=== PATIENT | male | born 1955 | race Caucasian/White ===

== ENCOUNTER 2019-12-02 07:56 | Outpatient (CLI) | payer BC, SELFPAY ==
--- NOTE | ~2019-12-02 | CT_ITS ---
EXAMINATION: CT chest wo con EXAM DATE: 12/02/2019 08:22 INDICATION: Prostate cancer. Enlarged lymph nodes. TECHNIQUE: Spiral CT of the chest without contrast. Axial, coronal and sagittal images were reviewe d. Coronal maximum intensity pixel images of chest reviewed. The dose-length product (DLP) for this examination was 494.66 mGy-cm. The exposure was tailored according to patient size (auto mA exposur e control), and iterative reconstruction (ASIR) was used as additional dose reduction technique. Comp arison is made to prior examination from 08/22/2019. Correlation was made with PET/CT 06/07/2019. FINDINGS: The lungs are clear. There are no pleural or pericardial effusions. Tracheobronchial t ree is patent. There is right lower paratracheal lymph node measuring 2.2 x 1.6 cm, unchanged kayla red to prior chest CT from August and PET/CT from May. There is no pneumothorax. Heart nor mal in size. There is extensive coronary arterial calcification, arterial sclerosis. Upper abdomen is unremarkable. There is moderate thoracic spondylosis without osteoblastic or osteolytic lesions identified. Patient has diffuse idiopathic skeletal hyperostosis (DISH). There is mild gynecomast ia. IMPRESSION: 1. Mediastinal lymphadenopathy, stable in size compared to prior study. Stability suggests these are more likely reactive than malignancy. 2. Extensive coronary artery calcifications. Consider cardiology consult if not recently evaluated. Reviewed, dictated and finalized at location B. IMPRESSION: 1. Mediastinal lymphadenopathy, stable in size compared to prior study. Stabil ity suggests these are more likely reactive than malignancy. 2. Extensive coronary artery calcifications. Consider cardiology consult if no t recently evaluated.
== END 2019-12-02 07:57 | disposition home or self-care (01) ==
LOC: ANHIMG 08:02
DX: R59.0 Localized enlarged lymph nodes (principal); I25.10 Atherosclerotic heart disease of native coronary artery without angina pectoris
CPT/HCPCS: 71250

== ENCOUNTER 2020-10-22 09:26 | Outpatient (CLI) | payer BC, SELFPAY ==
--- NOTE | ~2020-10-22 | CT_ITS ---
EXAMINATION: CT diagnostic chest wo con DATE: 10/22/2020 09:52 INDICATION: Cough TECHNIQUE: Computed tomography (CT) of the chest was performed without intravenous contrast. Automate d exposure control and iterative reconstruction technique were employed. Exam dose: 315.63 mGy-cm to harjeet exam DLP. COMPARISON: 12/02/2019 CT chest FINDINGS: Interval enlargement of prevascular and right paratracheal lymphadenopathy since 12/02/2019. Diminished prominence of subcarinal lymphadenopathy since 12/02/2019. Increased right hilar lymphadenopathy since 12/02/2019. Mild pericardial effusion since 12/02/2019. Extensive coronary atherosclerotic calcification is again noted. Thoracic and aortic great vessel anjel cifications. New approximately 11.7 x 15.5 mm mass in the right upper lobe (series 4 image 36, suggesting right up per lobe lung carcinoma. Consider PET/CT scan for further evaluation. The left lung is clear of infiltrate or consolidation. Normal morphology of the adrenal glands. Mild bilateral gynecomastia. Diffuse idiopathic skeletal hyperostosis of the thoracic and upper lumbar spine. No suspicious osteolytic or osteoblastic lesions are noted. IMPRESSION: 0.7 x 15.5 mm right upper lobe lung mass suspicious for bronchogenic carcinoma, with interval increas e right hilar, paratracheal and prevascular lymphadenopathy since 12/02/2019 Mild pericardial effusion since 12/02/2019 Reviewed, dictated and finalized at [facility]. Reviewed, dictated and finalized at location A. L FURNITURE ASSEMBLER IMPRESSION: 0.7 x 15.5 mm right upper lobe lung mass suspicious for bronchogenic carcinoma, with interval increase right hilar, paratracheal and prevascular lymphadenopat hy since 12/02/2019 Mild pericardial effusion since 12/02/2019
== END 2020-10-22 09:27 | disposition home or self-care (01) ==
PROVIDERS: PCP Family Medicine; Visit Provider Family Medicine
DX: R05 Cough (principal); I31.3 Pericardial effusion (noninflammatory)
CPT/HCPCS: 71250

== ENCOUNTER 2020-10-25 08:54 | Outpatient (CLI) | payer BC, SELFPAY ==
--- NOTE | ~2020-10-25 | PE_ITS ---
EXAMINATION: PET skull to mid thigh DATE: 10/25/2020 10:49 INDICATION: Abnormal findings of lung field. TECHNIQUE: Blood glucose level was 88 mg/dL. 10.669 mCi of 18-fluorodeoxyglucose (18-FDG) was adminis tered i.v. Low dose computed tomography (CT) images were acquired from the base of the brain to the p roximal thighs for attenuation correction and anatomic localization. Automated exposure control was e mployed. Dose-length product (DLP) was 944 mGy-cm. Positron emission tomography (PET) images were acq uired in the same distribution. COMPARISON: Chest CT 10/22/2020 FINDINGS: Head/neck: There is right high and mid internal jugular chain lymphadenopathy and left supraclavicula r lymphadenopathy with increased activity. For example, a 11 x 17 mm high right internal jugular barrtet n lymph node demonstrates maximum SUV of 8.0. Right thyroid lobe is newly enlarged with increased act ivity. Chest: There is mild atelectasis bilaterally. There is a 17 x 13 mm nodule in right upper lobe with i ncreased activity. This nodule is contiguous with infiltrative and confluent right perihilar lymphade nopathy. There is mediastinal lymphadenopathy with increased activity. No pleural effusion. The heart size is normal. There is a moderate-sized pericardial effusion. There are coronary artery calcificat ions. There is bilateral gynecomastia. Abdomen/pelvis/proximal thighs: The liver, spleen, gallbladder, pancreas, adrenal glands, and kidneys are normal. There are no dilated loops of bowel. There is a stent in left superficial femoral artery . There are no pathologically enlarged lymph nodes. There is no free intraperitoneal fluid. There is severe lumbar spondylosis. IMPRESSION: 1. Neck and chest lymphadenopathy, right lung nodule, and newly enlarged right thyroid lobe with incr eased activity, consistent with metastatic disease or lymphoma. Ultrasound-guided core needle biopsy of a cervical lymph node is recommended. 2. Moderate-sized pericardial effusion, new from 12/02/2019. Reviewed, dictated and finalized at location A. SING MACHINE OPERATOR IMPRESSION: 1. Neck and chest lymphadenopathy, right lung nodule, and newly enlarged right thyroid lobe with increased activity, consistent with metastatic disease or lym phoma. Ultrasound-guided core needle biopsy of a cervical lymph node is recomme nded. 2. Moderate-sized pericardial effusion, new from 12/02/2019.
[2020-10-25 09:22] LABS: Glucose Point of Care 88 (65-105)
== END 2020-10-25 08:55 | disposition home or self-care (01) ==
PROVIDERS: PCP Family Medicine; Visit Provider Family Medicine
DX: R91.8 Other nonspecific abnormal finding of lung field (principal); Z51.81 Encounter for therapeutic drug level monitoring; Z79.899 Other long term (current) drug therapy
CPT/HCPCS: 78815; 82948; A9552

== ENCOUNTER 2020-11-07 09:34 | Outpatient (CLI) | payer BC, SELFPAY ==
--- NOTE | ~2020-11-07 | US_ITS ---
EXAMINATION: US biopsy lymph node DATE: 11/07/2020 10:42 INDICATION: FDG avid cervical lymphadenopathy. TECHNIQUE: The procedure including the risks and benefits was discussed with the patient. Risks discu ssed included bleeding and infection. The patient understood the risks and agreed to proceed. The sk in at the right neck overlying the right jugular chain was prepped and draped in usual sterile fashio n. Anesthetic was administered with 1% lidocaine subcutaneously. An 18 gauge core biopsy needle was advanced under continuous ultrasound observation to one of the enlarged jugular chain lymph node of interest. 7 core biopsy specimens were obtained, 2 placed in formalin and 5 in RPMI media. The need le was removed and the entry site was cleaned and dressed. Post procedure ultrasound demonstrated no hemorrhage. FINDINGS: Ultrasound images demonstrate a 1.5 x 1.0 x 0.8 cm hypoechoic right jugular chain lymph nod e with no fatty hilum. Subsequent images demonstrate biopsy needle advanced through the lymph node. IMPRESSION: 1. Successful Ultrasound-guided biopsy of one of a few mildly prominent right jugular chain lymph nod es which demonstrate increased FDG uptake on prior PET/CT. Reviewed, dictated and finalized at location A. NTRY INDIRECT FIRE CREWMEMBER IMPRESSION: 1. Successful Ultrasound-guided biopsy of one of a few mildly prominent right j ugular chain lymph nodes which demonstrate increased FDG uptake on prior PET/CT .
== END 2020-11-07 09:35 | disposition home or self-care (01) ==
LOC: ANHIMG 09:39
PROVIDERS: PCP Family Medicine; Visit Provider Family Medicine
DX: C96.9 Malignant neoplasm of lymphoid, hematopoietic and related tissue, unspecified (principal)
CPT/HCPCS: 38505; 76942; 88305; 88342

== ENCOUNTER 2020-12-03 14:27 | Outpatient (CLI) | payer BC, SELFPAY ==
--- NOTE | 2020-12-03 14:30 | ECG_ITS ---
Measurements Intervals [place] Rate: 61 P: -9 ID: [id number] QRS: 45 QRSD: 98 T: 54 QT: 423 QTc: 428 Interpretive Statements SINUS RHYTHM DELAYED PRECORDIAL R/S TRANSITION LOW QRS VOLTAGE IN PRECORDIAL LEADS BASELINE ARTIFACT- I, II, III, AVF BORDERLINE ECG Electronically Signed On 12-03-2020 15:14:24 CDT by Tucker Sotomayor D.O.
[2020-12-03 15:27] LABS: Basophils Percent Auto 0.2 % (0.2-1.2); Eosinophils Absolute Auto 0.1 K/mm3 (0-0.3); Eosinophils Percent Auto 1.1 % (0-4.4); Hematocrit 27.4 % (42.0-52.0); Hemoglobin 8.7 g/dL (14.0-18.0); Immature Granulocyte Absolute 0.01 K/mm3 (0.00-0.031); Immature Granulocyte Percent A 0.2 % (0-0.5); Lymphocytes Absolute Auto 0.89 K/mm3 (0.9-3.2); Lymphocytes Percent Auto 15.9 % (18.3-44.2); Mean Corpuscular HGB Conc 31.8 g/dl (32-36); Mean Corpuscular Hemoglobin 33.5 pg (26-34); Mean Corpuscular Volume 105.4 fl (80-100); Mean Platelet Volume 9.5 fl (7.4-10.4); Monocytes Absolute Auto 0.6 K/mm3 (0.1-0.6); Monocytes Percent Auto 10.7 % (2.6-8.5); Neutrophils Percent Auto 71.9 % (45.5-73.1); Platelet Count Result 170 k/mm3 (150-375); Red Cell Distribution Width 13.3 % (11.5-14.5); White Blood Count 5.6 K/mm3 (4.5-10.0)
[2020-12-03 15:38] LABS: Prothrombin Time 13.5 Seconds (11.1-14.7)
[2020-12-03 15:44] LABS: Partial Thromboplastin Time 28.6 SECONDS (22.3-36.8)
== END 2020-12-03 14:28 | disposition home or self-care (01) ==
LOC: ANHSURGERY 14:29
PROVIDERS: PCP Family Medicine; Visit Provider Surgery
DX: C34.90 Malignant neoplasm of unspecified part of unspecified bronchus or lung (principal); I10 Essential (primary) hypertension; Z01.818 Encounter for other preprocedural examination; R94.31 Abnormal electrocardiogram [ECG] [EKG]
CPT/HCPCS: 36415; 85025; 85610; 85730; 93005

== ENCOUNTER → 2020-12-07 01:55 | Outpatient (CLI) | payer BC, SELFPAY ==
[2020-12-07 19:28] LABS: SARS-CoV-2 RNA PCR Negative
== END ==
PROVIDERS: PCP Family Medicine; Visit Provider Surgery
DX: Z01.812 Encounter for preprocedural laboratory examination (principal); Z20.822 Contact with and (suspected) exposure to COVID-19
CPT/HCPCS: C9803; U0003; U0005

== ENCOUNTER 2020-12-10 02:18 | Day surgery (SDC) | payer BC, SELFPAY ==
--- NOTE | ~2020-12-10 | XR_ITS ---
EXAMINATION: XR fl guide central line place DATE: 12/10/2020 12:16 INDICATION: Port catheter insertion TECHNIQUE: 2 fluoroscopic images of the central and left upper chest were obtained during procedure p erformed by Dr. Pitts. Radiologist was not present for the imaging or procedure. The amount of fluoro scopy time used during this procedure was 1.2 minutes. COMPARISON: None. FINDINGS: Images demonstrate a left subclavian central venous port catheter with distal tip at the cephalad sup erior vena cava. Visualized portions of the lungs are clear. IMPRESSION: 1. Left subclavian central venous port catheter tip in the cephalad superior vena cava. Reviewed, dictated and finalized at location A. IMPRESSION: 1. Left subclavian central venous port catheter tip in the cephalad superior ve na cava.
--- NOTE | ~2020-12-10 | XR_ITS ---
XR chest port-a-cath/central 12/10/2020 12:15 Indication: Postop portacatheter insertion Procedure: AP portable chest Comparison: 03/20/2014 Findings: There is a left subclavian rosaline catheter, tip in the SVC. There is a focal angulation in t he proximal aspect of the catheter in the subclavicular region. There is focal right suprahilar opaci ty which most likely represent atelectasis. No pleural effusion or pneumothorax. Heart size upper nor mal for technique. No acute osseous abnormality. Impression: 1: Portacatheter demonstrates focal angulation/kinking proximally in the subclavicular location. 2: Course bandlike opacity right suprahilar location, most likely atelectasis. Reviewed, dictated and finalized at location A. Impression: 1: Portacatheter demonstrates focal angulation/kinking proximally in the subcla vicular location. 2: Course bandlike opacity right suprahilar location, most likely atelectasis.
[2020-12-10 09:46] VITALS: BMI 29.7
[2020-12-10 09:57] VITALS: BP 99/56; PULSE 67; RESP 18; TEMP 36.1; O2SAT 99
[2020-12-10] MEDS: LACTATED RINGERS 1,000 ML 30 ML IV CONT (10:09)
[2020-12-10] MEDS: KETOROLAC 15 MG/ML VIAL (*BKC) IV PUSH (10:10)
--- NOTE | 2020-12-10 10:35 | PM.IMHP ---
H&P: HPI History of Present Illness Date/Time: 12/10/20 10:35 Pt is a 65 y/o M presenting c recently dx'd R upper lobe lung cancer. Pt is noted to have lymph node involvement at the time of presentation. Pt going to undergo frontline chemo followed by poss radiation. Pt here for placement of VAD. I d/w pt and the procedure and they wish to proceed. Chief Complaint: RUL lung cancer Review of Systems Review of Systems: All systems reviewed & are unremarkable except as noted in HPI and below PMFSH Social History Social History Smoking packs per day: 1 Smoking cigarettes per day: 20.0 Years smoked: 35 Smoking pack-years: 35.00 Smoking status: Former smoker Smoking end date: 09/20/15 Alcohol intake: current Drinks per week: 14 Substance use: never Substance use type: does not use Living arrangements: with family Spiritual care concerns: No Meds Home Medications and Allergies Home Medications Medication Instructions Recorded Confirmed Type aspirin [Aspirin Childrens] 81 mg PO DAILY 07/11/19 12/10/20 History atorvastatin 40 mg PO DAILY 07/11/19 12/10/20 History bupropion HCl 150 mg PO BID 07/11/19 12/10/20 History calcium citrate-vitamin D2 1 tablet PO DAILY 07/11/19 12/10/20 History carvedilol 25 mg PO BID 07/11/19 12/10/20 History clopidogrel 75 mg PO DAILY 07/11/19 12/10/20 History cyanocobalamin (vitamin B-12) 1,000 mcg PO DAILY 07/11/19 12/10/20 History folic acid 1 mg PO DAILY 07/11/19 12/10/20 History lisinopril 40 mg PO DAILY 07/11/19 12/10/20 History amlodipine 10 mg PO DAILY 08/22/19 12/10/20 History polyethylene glycol 3350 238 g PO PRN PRN 11/30/20 11/30/20 History Allergies Allergy/AdvReac Type Severity Reaction Status Date / Time Penicillins Allergy Mild Hives Verified 12/10/20 09:39 CONTRAST DYE Allergy Mild Hives Uncoded 12/10/20 09:39 Vital Signs Vital Signs - 24 hr 12/10/20 09:57 Temperature 36.1 C L Pulse Rate 67 Respiratory Rate 18 Blood Pressure 99/56 L Pulse Oximetry 99 Exam Const: General: cooperative, comfortable, no acute distress and ill appearing Nutritional Appearance: obese Orientation/consciousness: patient oriented x3 Limitations: no limitations Neck: Neck: normal visual inspection and full ROM Thyroid: multiple palpable nodules Chest: Chest palpation & inspection: normal inspection of the chest Resp: Effort & Inspection: normal respiratory effort Auscultation: diminished lung sounds Cardio: Jugular venous distension: no JVD Rate: regular rate Rhythm: regular rhythm GI: Inspection: normal to inspection and non-distended GI Palp: Yes Soft to palpation Assessment and Plan Assessment and plan (1) Malignant neoplasm of upper lobe, right bronchus or lung: Code(s): C34.11 - Malignant neoplasm of upper lobe, right bronchus or lung Status: Acute Assessment and Plan: will setup for L sided VAD placement
--- NOTE | 2020-12-10 10:38 | WPDHPUPDATE1 ---
History and Physical Update Update Date/Time: 12/10/20 10:38 History and Physical has been reviewed, including an updated exam of the patient. There are NO changes in the patient's condition. Risks, benefits, and alternatives have been discussed and questions answered. Patient agrees to proceed with procedure.
--- NOTE | 2020-12-10 10:40 | P.PNAN_ITS ---
Anes - Initial Pre Proc Eval Procedure: Operation Date: 12/10/20 11:30 Proposed Procedures p Insertion Fozia Cath - Ni Pitts MD Date/Time: 12/10/20 10:40 Surgeon: iN Pitts MD Pre Op Diagnosis: Malignant Neoplasm Of Right Lung Patient Data Age: 65 Gender: M Height: 5 ft 10 in Weight: 93.8 kg Last Vital Signs Temp 36.1 C L 12/10/20 09:57 Pulse 67 12/10/20 09:57 Resp 18 12/10/20 09:57 BP 99/56 L 12/10/20 09:57 Pulse Ox 99 12/10/20 09:57 Allergies Allergy/AdvReac Type Severity Reaction Status Date / Time Penicillins Allergy Mild Hives Verified 12/10/20 09:39 CONTRAST DYE Allergy Mild Hives Uncoded 12/10/20 09:39 Home Medications Medication Instructions Recorded Confirmed Type aspirin [Aspirin Childrens] 81 mg PO DAILY 07/11/19 12/10/20 History atorvastatin 40 mg PO DAILY 07/11/19 12/10/20 History bupropion HCl 150 mg PO BID 07/11/19 12/10/20 History calcium citrate-vitamin D2 1 tablet PO DAILY 07/11/19 12/10/20 History carvedilol 25 mg PO BID 07/11/19 12/10/20 History clopidogrel 75 mg PO DAILY 07/11/19 12/10/20 History cyanocobalamin (vitamin B-12) 1,000 mcg PO DAILY 07/11/19 12/10/20 History folic acid 1 mg PO DAILY 07/11/19 12/10/20 History lisinopril 40 mg PO DAILY 07/11/19 12/10/20 History amlodipine 10 mg PO DAILY 08/22/19 12/10/20 History polyethylene glycol 3350 238 g PO PRN PRN 11/30/20 11/30/20 History Patient hx anesthesia problems: none Family hx anesthesia problems: none PMFSH Past Medical History Medical History (Updated 12/10/20 @ 10:45 by Sridhar Brown MD) HTN (hypertension) Obesity Social History Social History Smoking packs per day: 1 Smoking cigarettes per day: 20.0 Years smoked: 35 Smoking pack-years: 35.00 Smoking status: Former smoker Smoking end date: 09/20/15 Alcohol intake: current Drinks per week: 14 Substance use: never Substance use type: does not use Living arrangements: with family Spiritual care concerns: No Anes - Eval Final PreProcedure Day of Procedure 12/10/20 10:40 Patient weight: obese Heart: regular rate and rhythm Lungs: clear to auscultation Airway: Mallampati scale class II Neurological: alert and oriented Last oral intake: >/= 8 hours ASA classification: IV Emergent: no Anesthetic plan: proceed Anesthesia type and monitoring: general GIVS and standard monitoring Informed Consent: The patient's anesthetic plan and its attendant risks and lisseth efits were discussed with the patient/family/POA. Questions were solicited and answers provided to the satisfaction of the patient/family/POA.
[2020-12-10] MEDS: CLINDAMYCIN 900 MG/D5W 50 ML 900 MG/50 ML PIGGYBACK 50 MG IVPB (11:04)
[2020-12-10] MEDS: HEPARIN SODIUM 5,000 UNITS/ML VIAL 5000 UNITS IRRIGATION (11:33)
[2020-12-10] MEDS: BUPIVACAINE/EPINEPHRINE 0.5% 30 ML VIAL 50 ML INFILTRATE (11:33)
[2020-12-10] MEDS: HEPARIN SODIUM, PORCINE 10,000 UNITS/10 ML VIAL 4000 UNITS IV PUSH (11:35)
[2020-12-10 12:02] VITALS: BP 89/50; PULSE 65; RESP 16; TEMP 36.4; O2SAT 100
--- NOTE | 2020-12-10 12:17 | P.OP_ITS ---
Procedure Note - Detailed Date of procedure: 12/10/20 Pre-op diagnosis: Malignant Neoplasm Of Right Lung Post-op diagnosis: same Procedure performed: placement of left subclavian venous access device under fluroscopic guidance Description of procedure: Patient was brought into the operating room and placed in the supine position. After adequate induction of mac anesthesia, the patient was prepped and draped in normal sterile fashion. Time-out was then done to verify the patient's identity, as well as the procedure being performed. I began by making a small incision in the left chest, I then gained access into the left subclavian vein with an 18 gauge needle. I then placed the guidewire into the vein and confirmed placement via fluoroscopic guidance. I then locally anesthetized the area in the left chest. I then enlarged the incision around the guidewire including making a subcutaneous pocket inferiorly to allow placement of the port itself. I then placed a dilating sheath over the guidewire into the left subclavian vein via sterile Seldinger technique. This was once again done and confirmed via fluoroscopic guidance. I then removed the dilator and the guidewire, now just leaving the sheath in the vein. I then fed the previously flushed catheter into the left subclavian vein under fluoroscopic guidance. At approximately 20 cm, the catheter was noted to be near the atrial caval junction. I then peeled away the sheath, now just leaving the catheter in the vein. I then was able to easily draw and flush from the catheter. The catheter was cut to fit and attached to the port itself. The port was placed in to the previously made subcutaneous pocket and sutured in with 0 Ethibond suture. Final fluoroscopic view showed the termination of the catheter at the atrial caval junction with a nice smooth curvature back to the port itself. I was able to gain access to the port with a Dallas needle and was able to easily draw and flush from the port. I then flushed 4 cc of a final heparin flush into the port. The incision was closed with 3 0 Vicryl suture in the subcutaneous tissue and the skin was closed with 4 O Monocryl subcuticular suture. Dermabond was then placed on wound. The patient tolerated the procedure well and will be sent to the recovery room in stable condition. Implants: L SCV VAD Anesthesia: MAC and local Surgeon: Ni Pitts MD Estimated blood loss (mL): 5 Drains: No Packing: No Pathology: none sent Complications: No immediate complications Condition: stable Disposition: PACU Findings: placement of L SCV VAD via 1st stick
[2020-12-10 12:32] VITALS: BP 103/53; PULSE 65; RESP 16
[2020-12-10 13:02] VITALS: BP 115/58; PULSE 65; RESP 16
[2020-12-10 13:25] VITALS: BP 102/72; PULSE 68; RESP 16
== END 2020-12-10 13:35 | disposition home or self-care (01) ==
PROVIDERS: PCP Family Medicine; Visit Provider Surgery
PROC: (CPT 36561; principal; 2020-12-10 11:30)
DX: C34.11 Malignant neoplasm of upper lobe, right bronchus or lung (principal); Z79.82 Long term (current) use of aspirin; Z87.891 Personal history of nicotine dependence; E66.9 Obesity, unspecified; Z68.29 Body mass index [BMI] 29.0-29.9, adult; I10 Essential (primary) hypertension
CPT/HCPCS: 36561; 77001; C1788; J1644; J1885; J2370; J3010; J7030; J7120

== ENCOUNTER → 2021-01-05 01:07 | Outpatient (CLI) | payer BC, SELFPAY ==
[2021-01-05 19:43] LABS: SARS-CoV-2 RNA PCR Negative
== END ==
PROVIDERS: PCP Family Medicine; Visit Provider Internal Medicine Gastroenterology
DX: Z01.812 Encounter for preprocedural laboratory examination (principal); Z20.822 Contact with and (suspected) exposure to COVID-19
CPT/HCPCS: C9803; U0003; U0005

== ENCOUNTER 2021-01-09 03:21 | Day surgery (SDC) | payer BC, SELFPAY ==
[2021-01-02 14:25] VITALS: BMI 32.7
[2021-01-09 09:13] VITALS: BP 105/65; PULSE 86; RESP 18; TEMP 36; O2SAT 100; BMI 28.8
[2021-01-09] MEDS: LACTATED RINGERS 1,000 ML 150 ML IV CONT (09:27)
--- NOTE | 2021-01-09 09:52 | WPDANESEPPF ---
Anes - Initial Pre Proc Eval Procedure: Operation Date: 01/09/21 10:15 Proposed Procedures p Colonoscopy - Yung Varma MD Date/Time: 01/09/21 09:52 Surgeon: Yung Varma MD Pre Op Diagnosis: Iron def, anemia, GI bleed Patient Data Age: 65 Gender: M Height: 5 ft 10 in Weight: 91.1 kg Last Vital Signs Temp 96.8 F L 01/09/21 09:13 Pulse 86 01/09/21 09:13 Resp 18 01/09/21 09:13 BP 105/65 01/09/21 09:13 Pulse Ox 100 01/09/21 09:13 Allergies Allergy/AdvReac Type Severity Reaction Status Date / Time Iodinated Contrast Media Allergy Severe Hives Verified 01/09/21 09:12 Penicillins Allergy Mild Hives Verified 01/09/21 09:12 Home Medications Medication Instructions Recorded Confirmed Type atorvastatin 40 mg PO DAILY 07/11/19 01/09/21 History bupropion HCl 150 mg PO BID 07/11/19 01/09/21 History calcium citrate-vitamin D2 1 tablet PO DAILY 07/11/19 01/09/21 History carvedilol 25 mg PO BID 07/11/19 01/09/21 History cyanocobalamin (vitamin B-12) 1,000 mcg PO DAILY 07/11/19 01/09/21 History folic acid 1 mg PO DAILY 07/11/19 01/09/21 History amlodipine 10 mg PO DAILY 08/22/19 01/09/21 History polyethylene glycol 3350 238 g PO PRN PRN 11/30/20 01/09/21 History Patient hx anesthesia problems: none Family hx anesthesia problems: none PMFSH Past Medical History Medical History (Updated 01/09/21 @ 09:51 by Tim Stafford MD) CAD (coronary artery disease) H/O prostate cancer HTN (hypertension) Obesity Social History Social History Smoking packs per day: 1 Smoking cigarettes per day: 20.0 Years smoked: 35 Smoking pack-years: 35.00 Smoking status: Former smoker Tobacco type: cigarettes Smoking end date: 09/20/15 Alcohol intake: current Drinks per week: 14 Substance use: never Substance use type: does not use Living arrangements: with family Gender identity (if verbalized by the patient): Male Spiritual care concerns: No Anes - Eval Final PreProcedure Day of Procedure 01/09/21 09:52 Patient weight: overweight Heart: regular rate and rhythm Lungs: clear to auscultation Airway: Mallampati scale class II Neurological: alert and oriented Last oral intake: >/= 8 hours ASA classification: IV Emergent: no Anesthetic plan: proceed Anesthesia type and monitoring: general GIVS and standard monitoring Informed Consent: The patient's anesthetic plan and its attendant risks and benefits were discussed with the patient/family/POA. Questions were solicited and answers provided to the satisfaction of the patient/family/POA.
--- NOTE | 2021-01-09 10:32 | PM.HPGS ---
History of Present Illness History of Present Illness Consent: Risks, benefits, and alternatives have been discussed and questions answered. Patient agrees to proceed with procedure. Chief complaint: Iron def, anemia, GI bleed Narrative: Isidro Cochran is a 65 year old male with MCKENNA, recently diagnosed with stage IV lung cancer and about to start XRT but noted more anemia. Also pelvic radiation for prostate cancer about 3 years ago. Denies overt GIB but never had scopes. Review of Systems Constitutional: Constitutional: Denies headache(s) and Denies weakness Eyes: Eyes: Denies blurry vision ENT: Reports Normal hearing present, Denies headache(s) and Denies neck pain Cardiovascular: Cardiovascular: Denies chest pain and Denies dyspnea Respiratory: Respiratory: Denies dyspnea Gastrointestinal: Gastrointestinal: Reports no additional gastrointestinal complaints Genitourinary: Genitourinary: Denies dysuria Musculoskeletal: Musculoskeletal: Denies neck pain Integumentary/Breasts: Skin/Breast: Denies dry skin Neurologic: Reports Normal hearing present, Denies headache(s) and Denies weakness Psychiatric: Psychiatric: Denies anxiety Endocrine: Endocrine: Denies change in body appearance Hematologic/Lymphatic: Hematologic/Lymphatic: Denies easy bleeding Allergic/Immunologic: Allergic/Immunologic: Denies urticaria PMFSH Past Medical History Medical History (Updated 01/09/21 @ 10:33 by Yung Varma MD) CAD (coronary artery disease) H/O prostate cancer HTN (hypertension) Iron deficiency anemia Obesity Social History Social History Smoking packs per day: 1 Smoking cigarettes per day: 20.0 Years smoked: 35 Smoking pack-years: 35.00 Smoking status: Former smoker Tobacco type: cigarettes Smoking end date: 09/20/15 Alcohol intake: current Drinks per week: 14 Substance use: never Substance use type: does not use Living arrangements: with family Gender identity (if verbalized by the patient): Male Spiritual care concerns: No Meds Home Medications and Allergies Home Medications Medication Instructions Recorded Confirmed Type atorvastatin 40 mg PO DAILY 07/11/19 01/09/21 History bupropion HCl 150 mg PO BID 07/11/19 01/09/21 History calcium citrate-vitamin D2 1 tablet PO DAILY 07/11/19 01/09/21 History carvedilol 25 mg PO BID 07/11/19 01/09/21 History cyanocobalamin (vitamin B-12) 1,000 mcg PO DAILY 07/11/19 01/09/21 History folic acid 1 mg PO DAILY 07/11/19 01/09/21 History amlodipine 10 mg PO DAILY 08/22/19 01/09/21 History polyethylene glycol 3350 238 g PO PRN PRN 11/30/20 01/09/21 History Allergies Allergy/AdvReac Type Severity Reaction Status Date / Time Iodinated Contrast Media Allergy Severe Hives Verified 01/09/21 09:12 Penicillins Allergy Mild Hives Verified 01/09/21 09:12 Vital Signs Vital Signs - 24 hr 01/09/21 09:13 Temperature 96.8 F L Pulse Rate 86 Respiratory Rate 18 Blood Pressure 105/65 Pulse Oximetry 100 Exam Const: General: comfortable and no acute distress HENMT: General nose exam: Normal nares present Eyes: General: appearance normal, both eyes and all related structures Neck: Neck: no JVD Resp: Auscultation: clear to auscultation bilaterally Cardio: Rate: regular rate Rhythm: regular rhythm GI: Inspection: non-distended GI Palp: Yes Soft to palpation Skin: General skin exam: normal color Neuro: General: gait normal Speech: normal speech Extrem: General: normal to inspection Psych: Mental Status: mental status grossly normal Assessment and Plan Assessment and plan (1) Iron deficiency anemia: Code(s): D50.9 - Iron deficiency anemia, unspecified Status: Acute Assessment and Plan: colonoscopy to assess if gi blood loss (2) Malignant neoplasm of upper lobe, right bronchus or lung: Code(s): C34.11 - Malignant neoplas
[2021-01-09 10:53] VITALS: BP 98/60; PULSE 79; RESP 25; O2SAT 99
[2021-01-09 11:03] VITALS: BP 106/65; PULSE 80; RESP 21; O2SAT 100
[2021-01-09 11:13] VITALS: BP 121/64; PULSE 73; RESP 21; O2SAT 100
== END 2021-01-09 11:26 | disposition home or self-care (01) ==
PROVIDERS: PCP Family Medicine; Visit Provider Internal Medicine Gastroenterology
PROC: 0DJD8ZZ Inspection of Lower Intestinal Tract, Via Natural or Artificial Opening Endoscopic (ICD-10-PCS; CPT 45378; principal; 2021-01-09 10:15)
DX: D50.9 Iron deficiency anemia, unspecified (principal); D50.0 Iron deficiency anemia secondary to blood loss (chronic); C34.11 Malignant neoplasm of upper lobe, right bronchus or lung; K64.8 Other hemorrhoids; Z85.46 Personal history of malignant neoplasm of prostate; Z92.3 Personal history of irradiation; I25.10 Atherosclerotic heart disease of native coronary artery without angina pectoris; I10 Essential (primary) hypertension; E66.9 Obesity, unspecified; Z68.28 Body mass index [BMI] 28.0-28.9, adult; Z87.891 Personal history of nicotine dependence
CPT/HCPCS: 45378; J2704; J7120

== ENCOUNTER 2021-02-12 11:27 | Observation (INO) | payer BC, SELFPAY ==
[2021-02-12] VITALS (32 sets, daily range): BP systolic 105–140; BP diastolic 57–83; PULSE 78–97; RESP 15–26; TEMP 36.1–36.7; O2SAT 96–100
--- NOTE | ~2021-02-12 | XR_ITS ---
EXAMINATION: XR abdomen/kub 1V INDICATION: Epigastric pain after EGD TECHNIQUE: Supine views of the abdomen were obtained on 2 radiographs. COMPARISON: PET/CT, 10/25/2020 FINDINGS: Surgical clips project over the fundus of the stomach. No free intraperitoneal gas is ident ified. The bowel gas pattern is normal. The visualized lung bases. There is mild to moderate bilatera l hip osteoarthritis. Calcified atherosclerosis is noted. A vascular stent in the left lower limb is seen to be within the superficial femoral artery comparisons. IMPRESSION: 1. No radiographic correlate for the patient's symptoms. Reviewed, dictated and finalized at location A.
--- NOTE | 2021-02-12 11:30 | ECG_ITS ---
Measurements Intervals Phyllis Rate: 82 P: 27 AK: 171 QRS: 56 QRSD: 110 T: 77 QT: 405 QTc: 474 Interpretive Statements SINUS RHYTHM NONSPECIFIC ST & T-WAVE ABNORMALITY- ANTEROLAT/HIGH LAT LEADS BASELINE ARTIFACT- II, III, AVL, AVF BORDERLINE ECG Electronically Signed On 02-12-2021 11:38:34 CDT by Tucker Sotomayor D.O.
[2021-02-12 11:48] LABS: Eosinophils Percent Auto 0.4 % (0-4.4); Immature Granulocyte Absolute 0.05 K/mm3 (0.00-0.031); Lymphocytes Absolute Auto 0.18 K/mm3 (0.9-3.2); Lymphocytes Percent Auto 3.4 % (18.3-44.2); Mean Corpuscular Hemoglobin 29.9 pg (26-34); Mean Corpuscular Volume 103.2 fl (80-100); Mean Platelet Volume 9.4 fl (7.4-10.4); Monocytes Absolute Auto 0.4 K/mm3 (0.1-0.6); Monocytes Percent Auto 8.2 % (2.6-8.5); Neutrophils Absolute Auto 4.6 K/mm3 (1.3-6.7); Nucleated Red Blood Cells Perc 0.4 % (0.0-0.2); Platelet Count Result 157 k/mm3 (150-375); Red Blood Count 1.57 M/mm3 (4.6-6.20); Red Cell Distribution Width 17.8 % (11.5-14.5); White Blood Count 5.2 K/mm3 (4.5-10.0)
--- NOTE | 2021-02-12 11:51 | ED.GENADULT ---
HPI - General Adult General Chief complaint: Recheck/Abnormal Lab/Rx Stated complaint: Needs Transfusion Time Seen by Provider: 02/12/21 11:32 Source: patient and family History of Present Illness HPI narrative: Patient is a 65 y/o male complaining of low blood count. He states that he had outpatient lab done earlier today and his Hgb was 4.7. He was told by his doctor's office to come to ED for transfusion. He states that he is currently getting radiation for lung cancer. He denies any pain or bleeding. He states that he feels weak. However, he is able to walk. Related Data Home Medications Medication Instructions Recorded Confirmed atorvastatin 40 mg PO DAILY 07/11/19 01/28/21 bupropion HCl 150 mg PO BID 07/11/19 01/28/21 calcium citrate-vitamin D2 1 tablet PO DAILY 07/11/19 01/28/21 carvedilol 25 mg PO BID 07/11/19 01/28/21 cyanocobalamin (vitamin B-12) 1,000 mcg PO DAILY 07/11/19 01/28/21 folic acid 1 mg PO DAILY 07/11/19 01/28/21 amlodipine 10 mg PO DAILY 08/22/19 01/28/21 polyethylene glycol 3350 238 g PO PRN PRN 11/30/20 01/28/21 ondansetron 8 mg PO Q8H 02/05/21 02/05/21 Allergies Allergy/AdvReac Type Severity Reaction Status Date / Time Iodinated Contrast Media Allergy Severe Hives Verified 02/12/21 11:36 Penicillins Allergy Mild Hives Verified 02/12/21 11:36 Review of Systems Constitutional: Constitutional: Denies chills, Reports fatigue, Denies fever(s), Denies headache(s) and Reports weakness Eyes: Eyes: Denies blurry vision ENT: Denies headache(s) and Denies neck pain Cardiovascular: Cardiovascular: Denies chest pain and Denies dyspnea Respiratory: Respiratory: Denies cough and Denies dyspnea Gastrointestinal: Gastrointestinal: Denies abdominal pain, Denies diarrhea, Denies nausea and Denies vomiting Genitourinary: Genitourinary: Denies hematuria and Denies dysuria Musculoskeletal: Musculoskeletal: Denies back pain and Denies neck pain Neurologic: Denies headache(s) and Reports weakness PMFSH Past Medical History Medical History CAD (coronary artery disease) H/O prostate cancer HTN (hypertension) Iron deficiency anemia Obesity Social History Social History Smoking packs per day: 1 Smoking cigarettes per day: 20.0 Years smoked: 35 Smoking pack-years: 35.00 Smoking status: Former smoker Tobacco type: cigarettes Smoking end date: 09/20/15 Alcohol intake: current Drinks per week: 14 Substance use: never Substance use type: does not use Gender identity (if verbalized by the patient): Male Spiritual care concerns: No Exam Const: General: no acute distress and ill appearing Orientation/consciousness: oriented to person, oriented to place, oriented to time and patient oriented x3 HENMT: Head: normocephalic Ears: external ears normal General nose exam: Normal external nose present Eyes: General: appearance normal, both eyes and all related structures Conjunctivae: conjunctivae normal Neck: Neck: normal visual inspection and full ROM Chest: Chest palpation & inspection: normal inspection of the chest and no tenderness Resp: Effort & Inspection: normal respiratory effort Auscultation: clear to auscultation bilaterally Cardio: Rate: regular rate Rhythm: regular rhythm GI: GI Palp: No abdominal tenderness and Yes Soft to palpation Skin: General skin exam: normal color, turgor normal and pallor Neuro: General: oriented to person, oriented to place, oriented to time and patient oriented x3 Cognition (Neuro): normal cognition Extrem: General: normal to inspection, full ROM and no pedal edema Psych: Appearance: grossly normal Mental Status: mental status grossly normal Affect: normal affect Course Consultations Consultation #1: Discussed with JACQUELINE Carey, who agrees to admit. Date: 02/12/21 Time: 12:19 Vital Signs Vital signs: Vital Signs Temperatu
[2021-02-12 12:07] LABS: Hematocrit 16.2 % (42.0-52.0); Hemoglobin 4.7 g/dL (14.0-18.0)
[2021-02-12 12:08] LABS: Anisocytosis 2+ (NORMAL); Platelet Estimate Adequate (Adequate)
[2021-02-12 12:09] LABS: Macrocytosis 1+ (NORMAL); Ovalocytes 1+ (NORMAL); Poikilocytosis 1+ (NORMAL)
[2021-02-12 12:10] LABS: Hypochromasia 1+ (NORMAL)
[2021-02-12 12:13] LABS: Alanine Aminotransferase 7 U/L (4-50); Albumin Level 3.4 g/dL (3.5-5.1); Alkaline Phosphatase 60 U/L (38-126); Anion Gap 8 mmol/L (8-16); Aspartate Amino Transferase 24 U/L (17-59); Bilirubin,Total 0.4 mg/dL (0.2-1.3); Blood Urea Nitrogen 17 mg/dL (9-20); Calcium 9.1 mg/dL (8.4-10.2); Carbon Dioxide 27 mmol/L (22-30); Chloride 102 mmol/L (98-107); Estimated CRCL calculation 68 ml/min; Estimated Glomerular Filt Rate > 60; Glucose 107 mg/dL (75-110); Sodium 137 mmol/L (137-145)
[2021-02-12] MEDS: TUBING, BLOOD PLUM PUMP TUBING 1 EACH XX (13:58)
[2021-02-12] MEDS: SODIUM CHLORIDE 0.9% IV 250 ML 30 ML IV CONT ×2 (13:58→17:34)
--- NOTE | 2021-02-12 15:00 | ADMGEN ---
This patient, Isidro Cochran, was admitted to Medical Room 348-01. Patient/family oriented to hospital policies and general routines including ID bracelet, bed and alarms, visiting hours, pain management, procedures, bathroom and other care routines, personal items, smoking policy, room service/diet, and visiting hours. Information on how to activate the Rapid Response Team has been discussed. Patient/Family are encouraged to report perceived risks to care and to ask questions if they do not understand what they are told or what they should do.
[2021-02-12] MEDS: SODIUM CHLORIDE 0.9% IV 250 ML 30 ML (21:40)
--- NOTE | 2021-02-12 22:03 | PM.IMHP ---
H&P: HPI History of Present Illness Date/Time: 02/12/21 22:03 male patient who has a past medical history of having prostate cancer. The patient was getting hormone injections for his prostate cancer. 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 The patient attempted to go through chemotherapy but is blood counts were too low. The patient saw Dr. Monte yesterday and Dr. fischer today. The patient had some lab work performed and he was told to go to the emergency room because his blood count was too low. The patient denied any shortness of breath. But he said over the weekend he was very fatigued did his legs felt heavy. The patient was not able to do his normal activity use fatigued very easily and had to sit and rest. The patient said that his legs felt like they did when he had peripheral artery disease. The patient was sent to the emergency room for blood transfusion. However the patient asked if he could have this done outpatient and he was told that he needed to go to the ER because counts were too low. He is currently on his 3rd unit of packed red blood cells. On 01/29/2021 was 7.6 and 25.1. The patient tells me that is his baseline. Today his H&H is 4.7 and 16.2. The patient is not on any anticoagulation nor is he having any signs and symptoms of active bleeding. The patient is slightly pale. Patient is being admitted for observation on the date of service of 02/12/2021. Chief Complaint: Low blood count Review of Systems Review of Systems: All systems reviewed & are unremarkable except as noted in HPI and below Constitutional: Constitutional: Reports as per HPI and Reports no additional constitutional complaints Eyes: Eyes: Reports as per HPI and Reports no additional eye complaints ENT: Reports system reviewed and no additional complaints, except as documented and Reports Normal hearing present Cardiovascular: Cardiovascular: Reports no additional cardiovascular complaints Respiratory: Respiratory: Reports no additional respiratory complaints and Reports no additional respiratory complaints Gastrointestinal: Gastrointestinal: Reports as per HPI and Reports no additional gastrointestinal complaints Musculoskeletal: Musculoskeletal: Reports no additional musculoskeletal complaints Integumentary/Breasts: Skin/Breast: Reports system reviewed and no additional complaints, except as docu and Reports as per HPI Neurologic: Reports system reviewed and no additional complaints, except as documented, Reports as per HPI and Reports Normal hearing present Psychiatric: Psychiatric: Reports no additional psychiatric complaints and Reports as per HPI Endocrine: Endocrine: Reports no additional endocrine complaints Hematologic/Lymphatic: Hematologic/Lymphatic: Reports no additional hematologic/lymphatic complaints Allergic/Immunologic: Allergic/Immunologic: Reports no additional allergic/immunologic complaints [facility] Past Medical History Medical History (Updated 02/12/21 @ 22:11 by Cherry Elmore NP) Anxiety CAD (coronary artery disease) H/O prostate cancer HTN (hypertension) HTN (hypertension), benign Hyperlipidemia Iron deficiency anemia Obesity Peripheral artery disease Port-A-Cath in place Left chest Surgical History Surgical History (Updated 02/12/21 @ 22:11 by Cherry Elmore NP) H/O colonoscopy H/O heart artery stent H/O lymph node biopsy Cervical chain History of right knee joint replacement Status post femoral-popliteal bypass surgery Left leg Family History Family History Mother Acute myocardial infarction Father Acute myocardial infarction Sibling Lung cancer Social History Soc
[2021-02-12] MEDS: ACETAMINOPHEN 325 MG TABLET 650 MG PO (22:18)
[2021-02-12] MEDS: carvediloL 25 MG TABLET PO (22:18)
[2021-02-13] VITALS (14 sets, daily range): BP systolic 123–162; BP diastolic 38–81; PULSE 73–88; RESP 16–29; TEMP 36.2–37.1; O2SAT 84–100; BMI 28.4
[2021-02-13 01:11] LABS: Hemoglobin 7.3 g/dL (14.0-18.0)
[2021-02-13 05:46] LABS: Basophils Percent Auto 0.3 % (0.2-1.2); Eosinophils Percent Auto 0.5 % (0-4.4); Hematocrit 23.6 % (42.0-52.0); Hemoglobin 7.5 g/dL (14.0-18.0); Immature Granulocyte Absolute 0.05 K/mm3 (0.00-0.031); Immature Granulocyte Percent A 1.4 % (0-0.5); Lymphocytes Absolute Auto 0.21 K/mm3 (0.9-3.2); Lymphocytes Percent Auto 5.7 % (18.3-44.2); Mean Corpuscular HGB Conc 31.8 g/dl (32-36); Mean Corpuscular Hemoglobin 29.6 pg (26-34); Mean Corpuscular Volume 93.3 fl (80-100); Mean Platelet Volume 9.6 fl (7.4-10.4); Monocytes Absolute Auto 0.4 K/mm3 (0.1-0.6); Monocytes Percent Auto 10.3 % (2.6-8.5); Neutrophils Percent Auto 81.8 % (45.5-73.1); Nucleated Red Blood Cells Perc 0.5 % (0.0-0.2); Platelet Count Result 130 k/mm3 (150-375); Red Blood Count 2.53 M/mm3 (4.6-6.20); Red Cell Distribution Width 19.5 % (11.5-14.5); White Blood Count 3.7 K/mm3 (4.5-10.0)
[2021-02-13 06:05] LABS: Anion Gap 6 mmol/L (8-16); Blood Urea Nitrogen 12 mg/dL (9-20); Calcium 8.2 mg/dL (8.4-10.2); Carbon Dioxide 27 mmol/L (22-30); Chloride 106 mmol/L (98-107); Estimated CRCL calculation 84 ml/min; Estimated Glomerular Filt Rate > 60; Glucose 96 mg/dL (75-110); Potassium 3.7 mmol/L (3.4-5.0); Sodium 139 mmol/L (137-145)
[2021-02-13 07:37] LABS: Free T4 Free Thyroxine Reflex 1.01 ng/dL (0.78-2.19)
[2021-02-13] MEDS: FERROUS SULFATE 324 MG TABLET PO ×3 (08:25→18:25)
[2021-02-13] MEDS: ATORVASTATIN 40 MG TABLET PO (08:25)
[2021-02-13] MEDS: amLODIPine BESYLATE 5 MG TABLET PO (08:25)
[2021-02-13] MEDS: CYANOCOBALAMIN 1,000 MCG TABLET 1000 MCG PO (08:26)
[2021-02-13] MEDS: FOLIC ACID 1 MG TABLET PO (08:26)
[2021-02-13] MEDS: carvediloL 25 MG TABLET PO ×2 (08:27→21:55)
[2021-02-13 08:35] LABS: Total Triiodothyronine (T3) 0.88 NG/ML (0.97-1.69)
[2021-02-13] MEDS: ACETAMINOPHEN 325 MG TABLET 650 MG PO ×2 (09:44→21:55)
--- NOTE | 2021-02-13 12:27 | WPDANESEPPF ---
Anes - Initial Pre Proc Eval Procedure: Operation Date: 02/13/21 14:15 Proposed Procedures p Esophagogastroduodenoscopy - Yung Varma MD Date/Time: 02/13/21 12:27 Surgeon: Danielle Roberts PA-C Pre Op Diagnosis: anemia Patient Data Age: 65 Gender: M Height: 5 ft 10 in Weight: 90 kg Last Vital Signs Temp 97.5 F L 02/13/21 05:22 Pulse 88 02/13/21 08:27 Resp 18 02/13/21 05:22 BP 124/66 02/13/21 05:22 Pulse Ox 94 02/13/21 05:22 Allergies Allergy/AdvReac Type Severity Reaction Status Date / Time Iodinated Contrast Media Allergy Severe Hives Verified 02/13/21 12:48 Penicillins Allergy Mild Hives Verified 02/13/21 12:48 Home Medications Medication Instructions Recorded Confirmed Type atorvastatin 40 mg PO DAILY 07/11/19 02/12/21 History bupropion HCl 150 mg PO BID 07/11/19 02/12/21 History carvedilol 25 mg PO BID 07/11/19 02/12/21 History cyanocobalamin (vitamin B-12) 1,000 mcg PO DAILY 07/11/19 02/12/21 History folic acid 1 mg PO DAILY 07/11/19 02/12/21 History amlodipine 5 mg PO DAILY 08/22/19 02/12/21 History ondansetron 8 mg PO Q8H 02/05/21 02/12/21 History aspirin 81 mg PO DAILY 02/12/21 02/12/21 History calcium carbonate-vit D3-min 1 tablet PO DAILY 02/12/21 02/12/21 History [Calcium-Vitamin D] ferrous sulfate 325 mg PO TID 02/12/21 02/12/21 History Laboratory Tests 02/12/21 02/13/21 02/13/21 11:40 01:05 05:21 WBC 3.7 K/mm3 L K/mm3 (4.5-10.0) RBC 2.53 M/mm3 L M/mm3 (4.6-6.20) Hgb 7.3 g/dL L g/dL 7.5 g/dL L g/dL (14.0-18.0) (14.0-18.0) Hct 24.0 % L % 23.6 % L % (42.0-52.0) (42.0-52.0) MCV 93.3 fl D fl (80-100) MCH 29.6 pg pg (26-34) MCHC 31.8 g/dl L g/dl (32-36) RDW 19.5 % H % (11.5-14.5) Plt Count 130 k/mm3 L k/mm3 (150-375) MPV 9.6 fl fl (7.4-10.4) Immature Gran % (Auto) 1.4 % H % (0-0.5) Neut % (Auto) 81.8 % H % (45.5-73.1) Lymph % (Auto) 5.7 % L % (18.3-44.2) [place] % (Auto) 10.3 % H % (2.6-8.5) Eos % (Auto) 0.5 % % (0-4.4) Baso % (Auto) 0.3 % % (0.2-1.2) Lymph # (Auto) 0.21 K/mm3 L K/mm3 (0.9-3.2) [place] # (Auto) 0.4 K/mm3 K/mm3 (0.1-0.6) Eos # (Auto) 0.0 K/mm3 K/mm3 (0-0.3) Baso # (Auto) 0.0 K/mm3 K/mm3 (0.0-0.1) Abs Immat Gran (auto) 0.05 K/mm3 H K/mm3 (0.00-0.031) Absolute Neuts (auto) 3.0 K/mm3 K/mm3 (1.3-6.7) Absolute Nucleated RBC 0.0 K/mm3 K/mm3 (0.0-0.012) Nucleated RBC % 0.5 % H % (0.0-0.2) Sodium Potassium Chloride Carbon Dioxide Anion Gap BUN Creatinine Estim Creat Clear Calc Estimated GFR Glucose Calcium TSH (Reflex) Free T4 Total T3 Blood Type O Positive Antibody Screen Negative Crossmatch See Detail 02/13/21 02/13/21 02/13/21 05:21 05:21 05:21 WBC RBC Hgb Hct MCV MCH MCHC RDW Plt Count MPV Immature Gran % (Auto) Neut % (Auto) Lymph % (Auto) [place] % (Auto) Eos % (Auto) Baso % (Auto) Lymph # (Auto) [place] # (Auto) Eos # (Auto) Baso # (Auto) Abs Immat Gran (auto) Absolute Neuts (auto) Absolute Nucleated RBC Nucleated RBC % Sodium 139 mmol/L mmol/L (137-145) Potassium 3.7 mmol/L mmol/L (3.4-5.0) Chloride 106 mmol/L mmol/L (98-107) Carbon Dioxide 27 mmol/L mmol/L (22-30) Anion Gap 6 mmol/L L mmol/L (8-16)
--- NOTE | 2021-02-13 12:39 | PC.NURSE ---
To GI lab via stretcher with GI lab staff. Report given to Yoly Trejo RN.
[2021-02-13] MEDS: LACTATED RINGERS 1,000 ML 150 ML IV CONT (12:54)
--- NOTE | 2021-02-13 12:56 | WPDGICN ---
Assessment and Plan Assessment and plan (1) Acute on chronic blood loss anemia: Code(s): D62 - Acute posthemorrhagic anemia Status: Acute Assessment and Plan: recent colonoscopy negative he has been describing intermittent black stools, not longer using anticoagulant will proceed with urgent EGD, more recommendations after scope (2) Melena: Code(s): K92.1 - Melena Status: Acute Assessment and Plan: received blood transfusion iv protonix and egd now (3) UGIB (upper gastrointestinal bleed): Code(s): K92.2 - Gastrointestinal hemorrhage, unspecified Status: Acute Assessment and Plan: continue to monitor (4) Non-small cell cancer of right lung: Code(s): C34.91 - Malignant neoplasm of unspecified part of right bronchus or lung Status: Acute Assessment and Plan: recently started on XRT, oncology on board GI Consult Note Consult date/time: 02/13/21 12:56 Reason for consult: acute on chronic blood loss anemia HPI: Isidro Cochran is a 65 year old male who I met almost a month ago after he came to have colonoscopy which was unremarkable and the reason of the scope was iron deficiency anemia. He was recently diagnosed with stage IV lung cancer and just recently started XRT. He also had pelvic radiation for prostate cancer about 3 years ago. My plan was to do EGD but patient wanted to wait. He says that noted intermittent dark stools and he is not longer using plavix for last several weeks. He said over the weekend he was very fatigue and his legs felt heavy. He had blood work that showed anemia, hb 4.7 admitted to hospital and given blood transfusion. Review of Systems Constitutional: Constitutional: Reports fatigue and Reports lethargy Eyes: Eyes: Denies blurry vision ENT: Reports Normal hearing present Comments: hoarseness- started after chest radiation Cardiovascular: Cardiovascular: Reports lightheadedness Respiratory: Respiratory: Reports dyspnea on exertion Gastrointestinal: Gastrointestinal: Denies abdominal pain and Reports melena Genitourinary: Genitourinary: Denies dysuria Musculoskeletal: Musculoskeletal: Denies neck pain Integumentary/Breasts: Skin/Breast: Denies dry skin Neurologic: Denies numbness Psychiatric: Psychiatric: Denies anxiety PMFSH Past Medical History Medical History (Updated 02/13/21 @ 15:41 by Yung Varma MD) Acute on chronic blood loss anemia Anxiety CAD (coronary artery disease) GI bleeding H/O prostate cancer HTN (hypertension) HTN (hypertension), benign Hyperlipidemia Iron deficiency anemia Melena Obesity Peripheral artery disease Port-A-Cath in place Left chest UGIB (upper gastrointestinal bleed) Surgical History Surgical History (Updated 02/13/21 @ 13:03 by [place] MD) H/O colonoscopy H/O heart artery stent H/O lymph node biopsy Cervical chain History of right knee joint replacement Status post femoral-popliteal bypass surgery Left leg Family History Family History Mother Acute myocardial infarction Father Acute myocardial infarction Sibling Lung cancer Social History Social History (Updated 02/12/21 @ 22:12 by Cherry Elmore NP) Social History: The patient lives at home with his . He has 1 adult daughter. His is the durable power criminal attorney for healthcare. The patient desires to be a full code. 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 The patient used to smoke and he quit in 2014. He does not use any alcohol marijuana or illicit drugs. Smoking packs per day: 1 Smoking cigarettes per day: 20.0 Years smoked: 35 Smoking pack-years: 35.00 Smoking status: Former smoker Second hand tobacco smoke exposure: Yes Alcohol intake: current Drinks per week: 14 Substance use: never Substance use type: does not use Gender identity (if verba
--- NOTE | 2021-02-13 12:59 | PDONCCN ---
HPI - Date of Consult Date/Time: 02/13/21 12:59 Requesting Physician: Danielle Roberts PA-C Primary Care Provider: Lindsay FuentesMD - Consult Narrative Reason for consult: Profound anemia Narrative: Isidro Cochran is a 65 year old male with recent diagnosis of non-small cell lung cancer with baseline history of prostate cancer and profound anemia. Patient had initial bone marrow biopsy done in 2018 that showed possible low-grade myelodysplasia. Repeat bone marrow biopsy was done just 3 weeks ago at [facility] that also are concerning for myelodysplastic syndrome. Given his significant anemia chemotherapy was not started for recent diagnosis of lung cancer instead patient started radiation therapy treatment. He was in the office yesterday and CBC showed hemoglobin of 4.7. Patient had recent colonoscopy that came back unremarkable. He was sent to the ER for blood transfusion and got admitted due to excessive tiredness and fatigue and lightheadedness and dizziness. He denies any melena hematochezia. He denies any other bleeding complaints. He is feeling better after blood transfusion. Review of Systems - Review of Systems All systems reviewed & are unremarkable except as noted in HPI and bel - Neurologic Reports system reviewed and no additional complaints, except as documented, Reports hearing normal, Reports weakness, Denies headache(s) [facility] Medical History: Medical History (Last Updated 02/13/21 @ 12:28 by Tim Stafford MD) Anxiety CAD (coronary artery disease) GI bleeding H/O prostate cancer HTN (hypertension) HTN (hypertension), benign Hyperlipidemia Iron deficiency anemia Obesity Peripheral artery disease Port-A-Cath in place Left chest Surgical History: Surgical History (Last Updated 02/12/21 @ 22:11 by Cherry Elmore NP) H/O colonoscopy H/O heart artery stent H/O lymph node biopsy Cervical chain History of right knee joint replacement Status post femoral-popliteal bypass surgery Left leg Family History: Family History (Last Reviewed 02/12/21 @ 22:11 by Cherry Elmore NP) Mother Acute myocardial infarction Father Acute myocardial infarction Sibling Lung cancer - Social History Social History: Social History (Last Updated 02/12/21 @ 22:12 by Cherry Elmore NP) Gender Identity: Gender identity (if verbalized by the patient): Male Sexual Orientation: Sexual Orientation (if Verbalized by the Patient): Straight or Heterosexual Alcohol Use: Alcohol intake: current Drinks per week: 14 Substance Use: Substance use: never Substance use type: does not use Others: Spiritual care concerns: No Smoking Status: Smoking status: Former smoker Second hand tobacco smoke exposure: Yes Smoking Pack-years: Smoking packs per day: 1 Smoking cigarettes per day: 20.0 Years smoked: 35 Smoking pack-years: 35.00 Meds Home Medications Medication Instructions Recorded Confirmed Type atorvastatin 40 mg PO DAILY 07/11/19 02/12/21 History bupropion HCl 150 mg PO BID 07/11/19 02/12/21 History carvedilol 25 mg PO BID 07/11/19 02/12/21 History cyanocobalamin (vitamin B-12) 1,000 mcg PO DAILY 07/11/19 02/12/21 History folic acid 1 mg PO DAILY 07/11/19 02/12/21 History amlodipine 5 mg PO DAILY 08/22/19 02/12/21 History ondansetron 8 mg PO Q8H 02/05/21 02/12/21 History aspirin 81 mg PO DAILY 02/12/21 02/12/21 History calcium carbonate-vit D3-min 1 tablet PO DAILY 02/12/21 02/12/21 History [Calcium-Vitamin D] ferrous sulfate 325 mg PO TID 02/12/21 02/12/21 History Allergies Allergy/AdvReac Type Severity Reaction Status Date / Time Iodinated Contrast Media Allergy Severe Hives Verified 02/13/21 12:48 Penicillins Allergy Mild Hives Verified 02/13/21 12:48 Results - Labs CBC & Chem 7: 02/13/21 05:21 02/13/21 05:21 Labs: Short CBC 02/13/21 02/13/21 Range/Units
[2021-02-13] MEDS: MORPHINE SULFATE (*CRX) 2 MG/ML INJ 1 MG IV PUSH (13:57)
--- NOTE | 2021-02-13 14:33 | PM.IMPN ---
Progress Note: A&P Assessment and Plan (1) Severe anemia: Code(s): D64.9 - Anemia, unspecified Status: Acute Assessment and Plan: Patient is a 65-year-old man with a history of non-small cell lung cancer, prostate cancer, and profound anemia, who went to his radiation therapy appointment on 02/12/2021 and his labs showed he had significant anemia with hemoglobin of 4.7. He was sent to the ER for further evaluation. The patient did have some fatigue and felt heaviness to his legs but did not contributed to anemia. He has been having some melena from last month but denies any other symptoms. Patient a colonoscopy 1 month ago which was unremarkable. He has not had an EGD. He has had severe anemia over the last few months and required blood transfusions multiple times. He recently had a 2nd bone marrow biopsy done at [facility] and they are taking his findings to the tumor board tomorrow for further evaluation for possible mild dysplastic syndrome. Initial Vitals showed he was afebrile, non tachycardic, blood pressure 140/71, oxygen saturation 99% on room air. Initial labs showed with a hemoglobin of 4.7, hematocrit 16.2. Normal platelet count, elevated neutrophils. CMP was normal. Patient was admitted to the hospital for severe anemia and required 3 units of PRBCs to stabilize his hemoglobin to 7.5/hematocrit 23%. Discussed patient's case with his oncologist Dr. Elliott who recommends having an EGD completed due to history of melena and recurrent anemia requiring transfusions. Patient was placed NPO and consult to Dr. Kamran ROLLE who is going to perform an EGD later this afternoon. Continue PPI twice daily Patient is stable at this time. Continue monitoring H&H Q 6 hours. Transfuse if H&H less than 7. (2) HTN (hypertension), benign: Code(s): I10 - Essential (primary) hypertension Status: Chronic Assessment and Plan: Blood pressure stable 124/66 morning. Continue amlodipine 5 mg daily. Continue monitoring. (3) Hyperlipidemia: Code(s): E78.5 - Hyperlipidemia, unspecified Status: Chronic Assessment and Plan: Continue statin medication. (4) Anxiety: Code(s): F41.9 - Anxiety disorder, unspecified Status: Chronic Assessment and Plan: Continue Wellbutrin. (5) Non-small cell cancer of right lung: Code(s): C34.91 - Malignant neoplasm of unspecified part of right bronchus or lung Status: Acute Assessment and Plan: Followed by oncologist Dr. Elliott. Appreciate recommendations at this time. (6) Peripheral artery disease: Code(s): I73.9 - Peripheral vascular disease, unspecified Status: Chronic Assessment and Plan: The patient had a fem-pop bypass and previously he did have a stent placed to the left leg. Hold his aspirin for now until further evaluation with EGD. Time Spent With Patient Time with patient: 25 - 35 minutes Subjective Date/time seen: 02/13/21 14:33 Interval history: Date of Service 02/13/21: Patient has been having some dark tarry stools for the last 1 month. He was feeling slightly fatigued and heaviness to his legs. He is on iron supplementation. He had a colonoscopy last month which was normal. He has not had an EGD. He has had extensive workup from Dr. Elliott and repeat bone marrow biopsy. Denies any chest pain, SOB, cough, fever, chills, nausea ,vomiting, abdominal pain, leg swelling, constipation, or any other symptoms at this time. Review of Systems Review of Systems: All systems reviewed & are unremarkable except as noted in HPI and below Exam Narrative: Exam Narrative: General: 65-year-old man sitting u
[2021-02-13] MEDS: EPOETIN ALFA-EPBX 20,000 UNITS/ML VIAL 20000 UNITS SUB-Q (15:26)
[2021-02-13] MEDS: PANTOPRAZOLE SODIUM IV 40 MG VIAL IV PUSH (21:55)
[2021-02-14 01:08] LABS: Hematocrit 24.7 % (42.0-52.0); Hemoglobin 7.4 g/dL (14.0-18.0)
[2021-02-14 06:02] LABS: Eosinophils Percent Auto 1.1 % (0-4.4); Hematocrit 26.2 % (42.0-52.0); Hemoglobin 8.1 g/dL (14.0-18.0); Immature Granulocyte Absolute 0.03 K/mm3 (0.00-0.031); Immature Granulocyte Percent A 0.8 % (0-0.5); Lymphocytes Absolute Auto 0.13 K/mm3 (0.9-3.2); Lymphocytes Percent Auto 3.5 % (18.3-44.2); Mean Corpuscular HGB Conc 30.9 g/dl (32-36); Mean Corpuscular Hemoglobin 29.1 pg (26-34); Mean Corpuscular Volume 94.2 fl (80-100); Mean Platelet Volume 9.4 fl (7.4-10.4); Monocytes Absolute Auto 0.4 K/mm3 (0.1-0.6); Monocytes Percent Auto 10.3 % (2.6-8.5); Neutrophils Absolute Auto 3.1 K/mm3 (1.3-6.7); Neutrophils Percent Auto 84.3 % (45.5-73.1); Nucleated Red Blood Cells Perc 0.5 % (0.0-0.2); Platelet Count Result 116 k/mm3 (150-375); Red Blood Count 2.78 M/mm3 (4.6-6.20); Red Cell Distribution Width 19.7 % (11.5-14.5); White Blood Count 3.7 K/mm3 (4.5-10.0)
[2021-02-14 06:17] LABS: Anion Gap 5 mmol/L (8-16); Blood Urea Nitrogen 9 mg/dL (9-20); Calcium 8.1 mg/dL (8.4-10.2); Carbon Dioxide 29 mmol/L (22-30); Chloride 105 mmol/L (98-107); Estimated CRCL calculation 95 ml/min; Estimated Glomerular Filt Rate > 60; Glucose 89 mg/dL (75-110); Magnesium 1.9 mg/dL (1.6-2.3); Potassium 3.7 mmol/L (3.4-5.0); Sodium 139 mmol/L (137-145)
[2021-02-14 06:18] VITALS: BP 107/48; PULSE 83; RESP 16; TEMP 37.3; O2SAT 93
[2021-02-14 09:37] VITALS: PULSE 83
[2021-02-14] MEDS: PANTOPRAZOLE SODIUM IV 40 MG VIAL IV PUSH (09:37)
[2021-02-14] MEDS: FOLIC ACID 1 MG TABLET PO (09:37)
[2021-02-14] MEDS: amLODIPine BESYLATE 5 MG TABLET PO (09:37)
[2021-02-14] MEDS: carvediloL 25 MG TABLET PO (09:37)
[2021-02-14] MEDS: ATORVASTATIN 40 MG TABLET PO (09:38)
[2021-02-14] MEDS: FERROUS SULFATE 324 MG TABLET PO (09:38)
[2021-02-14] MEDS: CYANOCOBALAMIN 1,000 MCG TABLET 1000 MCG PO (09:38)
[2021-02-14 09:46] VITALS: BMI 28.4
[2021-02-14 09:56] VITALS: BP 133/68; PULSE 95; RESP 18; TEMP 36.2; O2SAT 100
--- NOTE | 2021-02-14 10:18 | PM.DS ---
DS: Admitting Diagnosis Admitting Diagnosis Admitting Diagnosis: Fatigue DS: Discharge Diagnosis Discharge Diagnosis (1) Severe anemia: Code(s): D64.9 - Anemia, unspecified Status: Acute Assessment and Plan: Patient is a 65-year-old man with a history of non-small cell lung cancer, prostate cancer, and profound anemia, who went to his radiation therapy appointment on 02/12/2021 and his labs showed he had significant anemia with hemoglobin of 4.7. He was sent to the ER for further evaluation. The patient did have some fatigue and felt heaviness to his legs but did not contributed to anemia. He has been having some melena from last month but denies any other symptoms. Patient a colonoscopy 1 month ago which was unremarkable. He has not had an EGD. He has had severe anemia over the last few months and required blood transfusions multiple times. He recently had a 2nd bone marrow biopsy done at [facility] and they are taking his findings to the tumor board tomorrow for further evaluation for possible mild dysplastic syndrome. Initial Vitals showed he was afebrile, non tachycardic, blood pressure 140/71, oxygen saturation 99% on room air. Initial labs showed with a hemoglobin of 4.7, hematocrit 16.2. Normal platelet count, elevated neutrophils. CMP was normal. Patient was admitted to the hospital for severe anemia and required 3 units of PRBCs to stabilize his hemoglobin to 7.5/hematocrit 23%. The patient reported he had some melena over the last month. The patient has not had an EGD. I consult to GI, Dr. Andrew who preformed an EGD showing gastritis and Dieulafoy lesion that was bleeding and required intervention. He was placed on a clear liquid diet overnight and advanced in the morning. Patient is feeling well without any complaints at this time. Continue with pantoprazole 40 mg b.i.d., told to avoid NSAIDs and restart his aspirin in 1 week as per GI recommendations. I discussed the patient's case with his oncologist, Dr. Elliott. The patient is to follow-up with his radiation therapy on Thursday02/15/2021 or next week. He is to follow-up with Dr. Elliott in the office for repeat labs and follow-up next week. Patient understands and agrees the plan all questions answered. (2) UGIB (upper gastrointestinal bleed): Code(s): K92.2 - Gastrointestinal hemorrhage, unspecified Status: Acute Assessment and Plan: Found to have Dieulafoy lesion with EGD. (3) HTN (hypertension), benign: Code(s): I10 - Essential (primary) hypertension Status: Chronic Assessment and Plan: Blood pressure stable 107/48 morning. Feeling well. Asymptomatic. (4) Hyperlipidemia: Code(s): E78.5 - Hyperlipidemia, unspecified Status: Chronic Assessment and Plan: Continue statin medication. (5) Anxiety: Code(s): F41.9 - Anxiety disorder, unspecified Status: Chronic Assessment and Plan: Continue Wellbutrin. (6) Non-small cell cancer of right lung: Code(s): C34.91 - Malignant neoplasm of unspecified part of right bronchus or lung Status: Acute Assessment and Plan: Followed by oncologist Dr. Elliott. Appreciate recommendations at this time. (7) Peripheral artery disease: Code(s): I73.9 - Peripheral vascular disease, unspecified Status: Chronic Assessment and Plan: The patient had a fem-pop bypass and previously he did have a stent placed to the left leg. Restart ASA in 1 week. DS: Summary Hospital Course Reason for hospitalization: Hospital Course: See above Status at Discharge Cognitive/beha
--- NOTE | 2021-02-14 11:00 | WPDGIPROGNO ---
Progress Note: A&P Assessment and Plan (1) Dieulafoy lesion of stomach: Code(s): K31.82 - Dieulafoy lesion (hemorrhagic) of stomach and duodenum Status: Acute Assessment and Plan: found yesterday and treated endoscopically, bleeding stopped will need protonix bid follow-up office in 3-4 weeks (2) UGIB (upper gastrointestinal bleed): Code(s): K92.2 - Gastrointestinal hemorrhage, unspecified Status: Acute Assessment and Plan: resolved continue with ppi as outpatient and avoid nsaid's (3) Melena: Code(s): K92.1 - Melena Status: Acute (4) Acute on chronic blood loss anemia: Code(s): D62 - Acute posthemorrhagic anemia Status: Acute Assessment and Plan: improved after blood transfusion (5) Non-small cell cancer of right lung: Code(s): C34.91 - Malignant neoplasm of unspecified part of right bronchus or lung Status: Acute Assessment and Plan: will follow up with oncology Subjective Date/time seen: 02/14/21 11:00 Interval history: no more bleeding, feeling much better and tolerated diet (yesterday after egd had transient epigastric pain but resolved) Review of Systems Review of Systems: All systems reviewed & are unremarkable except as noted in HPI and below Exam Const: General: comfortable and no acute distress HENMT: General nose exam: Normal nares present Other: hoarse Eyes: General: appearance normal, both eyes and all related structures Neck: Neck: supple Resp: Auscultation: rhonchi Cardio: Rate: regular rate GI: Inspection: non-distended GI Palp: Yes Soft to palpation and No Tenderness to palpation present (GI) Auscultation: normal bowel sounds Skin: General skin exam: no rashes or lesions noted Neuro: Speech: normal speech Motor exam (neuro): Normal motor muscle tone present throughout Extrem: General: normal to inspection Psych: Mental Status: mental status grossly normal Objective Data Vital Signs Vital Signs: Vital Signs - 24 hr 02/13/21 17:47 02/13/21 20:27 02/13/21 21:55 Temperature 98.8 F 97.5 F L Pulse Rate 82 84 80 Respiratory Rate 16 16 Blood Pressure 129/64 136/64 Pulse Oximetry 96 95 02/14/21 06:18 02/14/21 09:37 02/14/21 09:56 Temperature 99.2 F 97.2 F L Pulse Rate 83 83 95 Respiratory Rate 16 18 Blood Pressure 107/48 L 133/68 Pulse Oximetry 93 100 Intake/Output Intake/Output: Intake & Output 02/11/21 02/12/21 02/13/21 02/14/21 23:59 23:59 23:59 23:59 Intake Total 1496 370 580 Output Total 1875 1500 Balance 1496 -4697 -570 Meds/Results Radiology Results: ITS Impressions Abdomen X-Ray 02/13/21 14:24 IMPRESSION: 1. No radiographic correlate for the patient's symptoms. Labs Labs: Laboratory Results - last 24 hr 02/14/21 02/14/21 02/14/21 00:13 05:47 05:48 WBC 3.7 L RBC 2.78 L Hgb 7.4 L 8.1 L Hct 24.7 L 26.2 L MCV 94.2 MCH 29.1 MCHC 30.9 L RDW 19.7 H Plt Count 116 L MPV 9.4 Immature Gran % (Auto) 0.8 H Neut % (Auto) 84.3 H Lymph % (Auto) 3.5 L Gladwin % (Auto) 10.3 H Eos % (Auto) 1.1 Baso % (Auto) 0.0 L Lymph # (Auto) 0.13 L Gladwin # (Auto) 0.4 Eos # (Auto) 0.0 Baso # (Auto) 0.0 Abs Immat Gran (auto) 0.03 Absolute Neuts (auto) 3.1 Absolute Nucleated RBC 0.0 Nucleated RBC % 0.5 H Sodium 139 Potassium 3.7 Chloride 105 Carbon Dioxide 29 Anion Gap 5 L BUN 9 Creatinine 0.70 Estim Creat Clear Calc 95 Estimated GFR > 60 Glucose 89 Calcium 8.1 L Magnesium 1.9 02/14/21 11:42 WBC RBC Hgb 8.7 L Hct 28.7 L MCV MCH MCHC RDW Plt Count MPV Immature Gran % (Auto) Neut % (Auto) Lymph % (Auto) Gladwin % (Auto) Eos % (Auto) Baso % (Auto) Lymph # (Auto) Gladwin # (Auto) Eos # (Auto) Baso # (Auto) Abs Immat Gran (auto) Absolute Neuts (auto) Absolute Nucleated RBC Nucleated RBC % Sodium
[2021-02-14 11:53] LABS: Hematocrit 28.7 % (42.0-52.0); Hemoglobin 8.7 g/dL (14.0-18.0)
--- NOTE | 2021-02-14 13:39 | P.PNAN_ITS ---
Anes - Prog Note Post-Op Date/Time: 02/14/21 13:39 Cardiovascular status: normal Respiratory status: normal Airway patency: baseline Mental status: baseline Post-Op hydration status: normal Vital Signs: Last Vital Signs Temp 36.2 C L 02/14/21 09:56 Pulse 95 02/14/21 09:56 Resp 18 02/14/21 09:56 BP 133/68 02/14/21 09:56 Pulse Ox 100 02/14/21 09:56 Pain Score (VAS): 0/10. Patient resting in bedside chair at time of assessment, appears comfortable. RN at bedside. I/O: Intake & Output 02/13/21 02/14/21 02/14/21 23:59 07:59 15:59 Intake Total 120 400 180 Output Total 800 1300 200 Balance -680 -900 -20 Laboratory Tests 02/14/21 11:42 02/14/21 05:48 02/13/21 02/14/21 02/14/21 14:57 00:13 05:47 WBC 3.7 L RBC 2.78 L Hgb 8.0 L 7.4 L 8.1 L Hct 26.0 L 24.7 L 26.2 L MCV 94.2 MCH 29.1 MCHC 30.9 L RDW 19.7 H Plt Count 116 L MPV 9.4 Immature Gran % (Auto) 0.8 H Neut % (Auto) 84.3 H Lymph % (Auto) 3.5 L Sutter % (Auto) 10.3 H Eos % (Auto) 1.1 Baso % (Auto) 0.0 L Lymph # (Auto) 0.13 L Sutter # (Auto) 0.4 Eos # (Auto) 0.0 Baso # (Auto) 0.0 Abs Immat Gran (auto) 0.03 Absolute Neuts (auto) 3.1 Absolute Nucleated RBC 0.0 Nucleated RBC % 0.5 H Sodium Potassium Chloride Carbon Dioxide Anion Gap BUN Creatinine Estim Creat Clear Calc Estimated GFR Glucose Calcium Magnesium 02/14/21 02/14/21 05:48 11:42 WBC RBC Hgb 8.7 L Hct 28.7 L MCV MCH MCHC RDW Plt Count MPV Immature Gran % (Auto) Neut % (Auto) Lymph % (Auto) Sutter % (Auto) Eos % (Auto) Baso % (Auto) Lymph # (Auto) Sutter # (Auto) Eos # (Auto) Baso # (Auto) Abs Immat Gran (auto) Absolute Neuts (auto) Absolute Nucleated RBC Nucleated RBC % Sodium 139 Potassium 3.7 Chloride 105 Carbon Dioxide 29 Anion Gap 5 L BUN 9 Creatinine 0.70 Estim Creat Clear Calc 95 Estimated GFR > 60 Glucose 89 Calcium 8.1 L Magnesium 1.9 Post-procedural complaints: none Patient Feedback: Patient satisfied with anesthetic care.
== END 2021-02-14 13:14 | disposition home or self-care (01) ==
LOC: ANHED 13:21 → ANH3MED 13:57
PROVIDERS: Internal Medicine Gastroenterology; Nurse Practitioner; Admitting Provider Family Medicine; Emergency Provider Emergency Medicine; PCP Family Medicine; Visit Provider Physician Assistant
PROC: 0DJ08ZZ Inspection of Upper Intestinal Tract, Via Natural or Artificial Opening Endoscopic (ICD-10-PCS; CPT 43235; principal; 2021-02-13 14:15)
DX: D62 Acute posthemorrhagic anemia (principal); K92.2 Gastrointestinal hemorrhage, unspecified; K63.81 Dieulafoy lesion of intestine; K92.1 Melena; I10 Essential (primary) hypertension; E78.5 Hyperlipidemia, unspecified; F41.9 Anxiety disorder, unspecified; C34.11 Malignant neoplasm of upper lobe, right bronchus or lung; I73.9 Peripheral vascular disease, unspecified; I25.10 Atherosclerotic heart disease of native coronary artery without angina pectoris; Z95.5 Presence of coronary angioplasty implant and graft; Z79.82 Long term (current) use of aspirin; Z85.46 Personal history of malignant neoplasm of prostate; Z87.891 Personal history of nicotine dependence
CPT/HCPCS: 43239; 43255; 36415; 36430; 74018; 80048; 80053; 83735; 84439; 84443; 84480; 85014; 85018; 85025; 86850; 86900; 86901; 86923; 88305; 93005; 96361; 96372; 96374; 96375; 96376; 99285; A9270; C9113; G0378; J0171; J2001; J2270; J2704; J7050; J7120; P9016; Q5106

== ENCOUNTER 2021-03-18 08:52 | Outpatient (CLI) | payer BC, SELFPAY ==
--- NOTE | ~2021-03-18 | CT_ITS ---
EXAMINATION: CT chest abdomen pelvis w con DATE: 03/18/2021 10:05 INDICATION: Chronic anemia, history of lung and prostate cancer TECHNIQUE: Transaxial computed tomographic images of the chest, abdomen, and pelvis were obtained aft er the administration of 100 cc of Omnipaque 350 intravenous contrast. The dose-length product (DLP) was 873.52 mGy-cm. Automated exposure control and iterative reconstruction technique were employed. COMPARISON: 10/25/2020, 10/22/2020 FINDINGS: CHEST CT: Left supraclavicular and right paratracheal lymphadenopathy persists without significant change. Ther e is confluent right hilar lymphadenopathy which is not significantly changed. Left axillary lymphade nopathy has developed with lymph nodes measuring up to 11 mm. The previously described 1.5 x 0.9 cm r ight suprahilar nodule is slightly decreased in size, previously measuring 1.7 x 1.3 cm. There is a n ew 1.7 x 1.1 cm right upper lobe nodular opacity. Also seen is a new airspace opacity right lower lob e. There is a small right pleural effusion. Coronary artery atherosclerosis. Small pericardial effusi on is present which has increased in size. There is no pneumothorax. There are bridging osteophytes a t multiple levels in the spine, consistent with diffuse idiopathic skeletal hyperostosis (DISH). ABDOMEN/PELVIS CT: The liver spleen pancreas, gallbladder, and normal. There is a questionable mass left adrenal gland. The kidneys are unremarkable. There is calcified atherosclerosis of the aorta and many of the other a rteries. No pathologically enlarged abdominal or pelvic lymph nodes are identified. There is no free intraperitoneal gas or evidence of bowel obstruction. A moderate volume of colonic stool is present. The appendix is normal. There is severe lumbar spondylosis. IMPRESSION: 1. Right perihilar upper lobe nodule, right hilar and paratracheal lymphadenopathy, left supraclavicu lar lymphadenopathy, and developing left axillary lymphadenopathy consistent with malignancy. 2. New right upper lobe nodule, infectious/inflammatory versus metastatic. 3. Right lower lobe airspace opacity, likely infectious or inflammatory. 4. Questionable left adrenal mass. Potential follow-up examination is recommended. 5. Small right pleural effusion. 6. Moderate-sized pericardial effusion. Reviewed, dictated and finalized at location B. IMPRESSION: 1. Right perihilar upper lobe nodule, right hilar and paratracheal lymphadenopa thy, left supraclavicular lymphadenopathy, and developing left axillary lymphad enopathy consistent with malignancy. 2. New right upper lobe nodule, infectious/inflammatory versus metastatic. 3. Right lower lobe airspace opacity, likely infectious or inflammatory. 4. Questionable left adrenal mass. Potential follow-up examination is recommend ed. 5. Small right pleural effusion. 6. Moderate-sized pericardial effusion.
== END 2021-03-18 08:53 | disposition home or self-care (01) ==
PROVIDERS: PCP Family Medicine; Visit Provider Internal Medicine Hematology & Oncology
DX: D64.9 Anemia, unspecified (principal); J90 Pleural effusion, not elsewhere classified; I31.3 Pericardial effusion (noninflammatory); R91.8 Other nonspecific abnormal finding of lung field
CPT/HCPCS: 71260; 74177; Q9967

== ENCOUNTER 2021-03-27 07:35 | Outpatient (RCR) | payer BC, SELFPAY ==
[2020-12-28] VITALS (11 sets, daily range): BP systolic 113–133; BP diastolic 60–69; PULSE 61–68; RESP 14–16; TEMP 35.7–36.3; O2SAT 95–100
[2020-12-28 08:21] LABS: Hematocrit 19.3 % (42.0-52.0); Hemoglobin 5.6 g/dL (14.0-18.0)
[2020-12-28] MEDS: diphenhydrAMINE HCl CAP 25 MG CAPSULE PO (08:25)
[2020-12-28] MEDS: ACETAMINOPHEN 325 MG TABLET 650 MG PO (08:25)
[2020-12-28] MEDS: FUROSEMIDE INJ 40 MG/4 ML VIAL 20 MG IV PUSH (11:31)
[2021-01-16] VITALS (10 sets, daily range): BP systolic 110–132; BP diastolic 63–75; PULSE 74–81; RESP 16; TEMP 36.3–36.6; O2SAT 97–100
[2021-01-16 07:47] LABS: Hematocrit 21.8 % (42.0-52.0)
[2021-01-16 07:52] LABS: Hemoglobin 6.4 g/dL (14.0-18.0)
[2021-01-16] MEDS: ACETAMINOPHEN 325 MG TABLET 650 MG PO (08:48)
[2021-01-16] MEDS: diphenhydrAMINE HCl CAP 25 MG CAPSULE PO (08:48)
[2021-01-16] MEDS: SODIUM CHLORIDE 0.9% IV 250 ML 30 ML IV CONT (09:19)
[2021-01-16] MEDS: FUROSEMIDE INJ 40 MG/4 ML VIAL 20 MG IV PUSH (12:02)
[2021-03-27] VITALS (14 sets, daily range): BP systolic 100–146; BP diastolic 63–95; PULSE 83–91; RESP 16; TEMP 36–36.8; O2SAT 93–100; BMI 27.7
[2021-03-27] MEDS: diphenhydrAMINE HCl CAP 25 MG CAPSULE PO (08:24)
[2021-03-27] MEDS: ACETAMINOPHEN 325 MG TABLET 650 MG PO (08:24)
[2021-03-27] MEDS: FUROSEMIDE INJ 40 MG/4 ML VIAL 20 MG IV PUSH (12:38)
--- NOTE | 2021-03-27 16:56 | PC.NURSE ---
Patient denies having any shortness of breath, pain, skin changes, or any discomfort. Patient tolerated blood transfusions well. IV's removed. RN went through discharge instructions with the patient. Patient verbalized understanding of discharge instructions.
== END 2021-03-28 23:59 | disposition home or self-care (01) ==
LOC: ANHCPCTRAN 07:35
PROVIDERS: PCP Family Medicine; Visit Provider Internal Medicine Hematology & Oncology
DX: D62 Acute posthemorrhagic anemia (principal)
CPT/HCPCS: 36415; 36430; 85014; 85018; 86850; 86900; 86901; 86920; 86923; 96374; A9270; J1940; J7050; P9016

== ENCOUNTER 2021-04-04 08:00 | Outpatient (RCR) | payer BC, SELFPAY ==
[2021-04-04 07:52] VITALS: TEMP 36.1
[2021-04-04] MEDS: SODIUM CHLORIDE 0.9% IV 250 ML 30 ML IV CONT (07:52)
[2021-04-04] MEDS: ACETAMINOPHEN 325 MG TABLET 650 MG PO (07:52)
[2021-04-04] MEDS: diphenhydrAMINE HCl CAP 25 MG CAPSULE PO (07:52)
[2021-04-04 08:03] LABS: Hematocrit 26.1 % (42.0-52.0); Hemoglobin 7.5 g/dL (14.0-18.0)
[2021-04-04 08:30] VITALS: BP 109/97; PULSE 97; RESP 14; TEMP 36.1; O2SAT 100
[2021-04-04 08:45] VITALS: BP 118/78; PULSE 83; RESP 15; TEMP 35.8; O2SAT 96
[2021-04-04 09:45] VITALS: BP 115/72; PULSE 82; RESP 13; TEMP 35.8; O2SAT 98
[2021-04-04 10:45] VITALS: BP 131/85; PULSE 84; RESP 15; TEMP 35.8; O2SAT 97
[2021-04-04 11:00] VITALS: BP 120/82; PULSE 83; RESP 14; TEMP 35.8; O2SAT 98
== END 2021-06-30 23:59 | disposition home or self-care (01) ==
LOC: ANHCPCTRAN 08:00
PROVIDERS: PCP Family Medicine; Visit Provider Internal Medicine Hematology & Oncology
DX: D46.9 Myelodysplastic syndrome, unspecified (principal)
CPT/HCPCS: 36415; 36430; 85014; 85018; 86850; 86900; 86901; 86920; A9270; J7050; P9016

== ENCOUNTER 2021-05-09 11:59 | Emergency (ER) | payer BC, SELFPAY ==
--- NOTE | 2021-05-09 12:04 | ED.CPR ---
HPI - CPR General Chief Complaint: Cardiac Arrest/CPR Stated Complaint: CARDIAC ARREST Source: EMS Mode of arrival: EMS Limitations: clinical condition History of Present Illness HPI narrative: Patient is a 65-year-old male with a history of lung cancer who presents as a cardiac arrest. Patient was witnessed by his to collapse at home after taking some of his morning medications. She states that initially the patient was fine his morning pills when he felt like a pill was stuck. He drinks some water in order to clear it. Patient was in the kitchen and at the time the patient's was in the living room. When the patient's went to check on her , she found him to be unresponsive, slumped over. He was not breathing at that time. Police were called, CPR was started on scene, at the time of EMS arrival, glucose was 103. Patient was in asystole, unresponsive. Vinicio device was placed, CPR continued, patient had 3 additional rounds of intravenous epinephrine without ROSC. Patient was transported to our facility with CPR ongoing. Related Data Home Medications Medication Instructions Recorded Confirmed atorvastatin 40 mg PO DAILY 07/11/19 05/06/21 bupropion HCl 150 mg PO BID 07/11/19 05/06/21 carvedilol 25 mg PO BID 07/11/19 05/06/21 cyanocobalamin (vitamin B-12) 1,000 mcg PO DAILY 07/11/19 05/06/21 folic acid 1 mg PO DAILY 07/11/19 05/06/21 ondansetron 8 mg PO Q8H 02/05/21 05/06/21 aspirin 81 mg PO DAILY 02/12/21 05/06/21 calcium carbonate-vit D3-min 1 tablet PO DAILY 02/12/21 05/06/21 ferrous sulfate 325 mg PO TID 02/12/21 05/06/21 Allergies Allergy/AdvReac Type Severity Reaction Status Date / Time Iodinated Contrast Media Allergy Severe Hives Verified 05/06/21 12:05 Penicillins Allergy Mild Hives Verified 05/06/21 12:05 Review of Systems Review of Systems: ROS unobtainable: Yes unobtainable due to medical condition PMFSH Past Medical History Medical History (Updated 05/09/21 @ 12:40 by Silvia Donovan MD) Acute on chronic blood loss anemia Anxiety CAD (coronary artery disease) Dieulafoy lesion of stomach GI bleeding H/O prostate cancer HTN (hypertension) HTN (hypertension), benign Hyperlipidemia Iron deficiency anemia Melena Obesity Peripheral artery disease Port-A-Cath in place Left chest UGIB (upper gastrointestinal bleed) Surgical History Surgical History (Updated 02/13/21 @ 13:03 by [place] Elliott MD) H/O colonoscopy H/O heart artery stent H/O lymph node biopsy Cervical chain History of right knee joint replacement Status post femoral-popliteal bypass surgery Left leg Family History Family History Mother Acute myocardial infarction Father Acute myocardial infarction Sibling Lung cancer Social History Social History (Updated 02/12/21 @ 22:12 by Cherry Elmore NP) Social History: The patient lives at home with his . He has 1 adult daughter. His is the durable power managing attorney for healthcare. The patient desires to be a full code. 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 The patient used to smoke and he quit in 2014. He does not use any alcohol marijuana or illicit drugs. Smoking packs per day: 1 Smoking cigarettes per day: 20.0 Years smoked: 35 Smoking pack-years: 35.00 Smoking status: Former smoker Second hand tobacco smoke exposure: Yes Alcohol intake: current Drinks per week: 14 Substance use: never Substance use type: does not use Gender identity (if verbalized by the patient): Male Spiritual care concerns: No Exam Narrative: GENERAL: Unresponsive HEAD: Normocephalic, atraumatic. EYES: Pupils fixed and dilated ENT: Nares clear, no rhinorrhea or epistaxis. Mucous membranes moist.Gualberto airway in place. NECK: Supple. CHEST: Gualberto airway in place, Vinicio in place, CPR Ongoing HEART:Asystole ABDOMEN:Non distended, non tender EXTREMITIES
--- NOTE | 2021-05-09 13:02 | PC.NURSE ---
[facility] is called 11:55 pt arrived via EMS with Vinicio running, pt is asystole. 1157 Epi and Sodium bi- carb is given to pt 1158 pulse check- pt is asystole 1159 time of was called Per EMS prior to arrival pt was down for approx 22 minutes. Pt was given 3 rounds of EPI in the field and a Gualberto #4 was placed in pts throat. Pt had a blood glucose of 104 for EMS, and a 20 in the R ac with normal saline fluids running. 12:58 [facility] was called and notified. Spoke with Rosita 12:57 Joss from [facility] called and states that pt is not an acceptable donor. 12:45 [facility] called and spoke with Cameron. Per Cameron due to pt choking someone will have to come out and examine body.
--- NOTE | 2021-05-09 14:30 | PC.NURSE ---
[facility] released body. [facility] called. Per [facility] employee take pt to [facility].
== END 2021-05-09 15:12 | disposition expired ==
LOC: ANHED 12:43
PROVIDERS: Emergency Provider Emergency Medicine; PCP Family Medicine
DX: I46.9 Cardiac arrest, cause unspecified (principal); C34.90 Malignant neoplasm of unspecified part of unspecified bronchus or lung; I10 Essential (primary) hypertension; I25.10 Atherosclerotic heart disease of native coronary artery without angina pectoris; Z85.46 Personal history of malignant neoplasm of prostate; E78.5 Hyperlipidemia, unspecified; D62 Acute posthemorrhagic anemia; F41.9 Anxiety disorder, unspecified; Z79.82 Long term (current) use of aspirin; E66.9 Obesity, unspecified; Z95.5 Presence of coronary angioplasty implant and graft; Z96.651 Presence of right artificial knee joint; Z87.891 Personal history of nicotine dependence
CPT/HCPCS: 92950; 99285; J0171